=== PATIENT | male | born 1950 | race Caucasian/White ===

== ENCOUNTER → 2018-01-09 | Outpatient (CLI) | payer MEDICARE, OTHER | LOC: CARD 14:25 | PROVIDERS: ATTEND Internal Medicine Cardiovascular Disease | DX: I25.10 Atherosclerotic heart disease of native coronary artery without angina pectoris (principal) | CPT/HCPCS: 93017 ==

== ENCOUNTER 2018-05-29 05:38 | Outpatient (CLI) | payer MEDICARE, OTHER ==
[~2018-05-29] VITALS: Ht 172.7 cm; Wt 79.4 kg
[2018-05-29] MEDS ORDERED: DOXA4TAB PO (10:58)
[2018-05-29] MEDS ORDERED: ASPI-999 PO (10:58)
[2018-05-29] MEDS ORDERED: CLOP75TA69 PO (10:58)
[2018-05-29] MEDS ORDERED: NITR0.4T39 SL (10:58)
[2018-05-29] MEDS ORDERED: ATOR20TA66 PO (10:58)
[2018-05-29] MEDS ORDERED: DILT180C67 PO (10:58)
[2018-05-29] MEDS ORDERED: MULT1CAP27 PO (10:58)
== END 2018-05-29 11:06 | disposition home or self-care (01) ==
LOC: PREOP 05:38
PROVIDERS: ATTEND Surgery
DX: Z01.818 Encounter for other preprocedural examination (principal)

== ENCOUNTER 2018-06-05 06:55 | Day surgery (SDC) | payer MEDICARE, OTHER ==
[~2018-06-05] VITALS: Ht 172.7 cm; Wt 79.4 kg
[~2018-06-05 06:55] MED LIST: ASPI-999 PO; ATOR20TA66 PO; CLOP75TA69 PO; DILT180C67 PO; DOXA4TAB PO; MULT1CAP27 PO; NITR0.4T39 SL
[2018-06-05] MEDS ORDERED: LACTATED RINGERS 1,000 ML IV ONE (07:03)
[2018-06-05] MEDS ORDERED: MIDAZOLAM 2 MG/2 ML (VERSED) VIAL ONE (07:18)
[2018-06-05] MEDS ORDERED: PROPOFOL INJECTION 50 ML IV ONE (07:18)
[2018-06-05] MEDS ORDERED: LACTATED RINGERS 1,000 ML IV STA (07:29)
--- OUTSIDE RECORDS SUMMARY | 2018-06-05 07:29 | XMS REPORT | Continuity of Care Document ---
Author Author [facility] Organization [facility] Address Unknown Phone Unavailable Allergies Active Description Code Type Severity Reaction Onset Reported/Identified Relationship to Patient Clinical Status Yes No Known Allergies Drug Allergy N/A N/A 06/07/2013 Yes No Known Drug Allergies Drug Allergy N/A N/A 06/07/2013 Yes No Known Food Allergies Food Allergy N/A N/A 06/07/2013 Yes No Allergy Information Available [id number] Drug Allergy Unknown N/A 2015 Yes No Known Drug Allergies [id number] Drug Allergy Unknown N/A 05/29/2018 Medications There is no data. Problems Date Dx Coded Attending Type Code Diagnosis Diagnosed By 06/07/2013 Marvel OCAMPO, Neto Lawrence Admitting 794.30 ABN CV FUNCT STUDY NOS 06/07/2013 Marvel OCAMPO, Neto Lawrence Final V64.3 NO PX/REASONS NEC 11/11/2014 Ot 518.89 11/11/2014 Ot 786.07 11/11/2014 Ot 786.05 11/11/2014 Ot 719.41 11/11/2014 Ot 959.2 11/11/2014 Ot E000.8 11/11/2014 Ot E007.3 11/11/2014 Ot E849.4 11/11/2014 Ot E928.9 05/11/2015 Ot 518.89 05/11/2015 Ot 786.07 05/11/2015 Ot 786.05 05/11/2015 Ot 719.41 05/11/2015 Ot 959.2 05/11/2015 Ot E000.8 05/11/2015 Ot E007.3 05/11/2015 Ot E849.4 05/11/2015 Ot E928.9 05/14/2015 Ot 518.89 05/14/2015 Ot 786.07 05/14/2015 Ot 786.05 05/14/2015 Ot 719.41 05/14/2015 Ot 959.2 05/14/2015 Ot E000.8 05/14/2015 Ot E007.3 05/14/2015 Ot E849.4 05/14/2015 Ot E928.9 05/14/2015 Ot 518.89 05/14/2015 Ot 786.07 05/14/2015 Ot 786.05 05/14/2015 Ot 719.41 05/14/2015 Ot 959.2 05/14/2015 Ot E000.8 05/14/2015 Ot E007.3 05/14/2015 Ot E849.4 05/14/2015 Ot E928.9 05/18/2015 BRANDT OCAMPO FACC, ALI FACP CCDS Ot E78.4 05/18/2015 BRANDT OCAMPO FACC, ALI FACP CCDS Ot I12.9 05/18/2015 BRANDT OCAMPO FACC, ALI FACP CCDS Ot I25.110 05/18/2015 BRANDT OCAMPO FACC, ALI FACP CCDS Ot I34.1 05/18/2015 BRANDT BLANCAC, ALI FACP CCDS Ot N18.2 05/18/2015 BRANDT OCAMPO FACC, ALI FACP CCDS Ot E78.4 05/18/2015 BRANDT OCAMPO FACC, ALI FACP CCDS Ot I12.9 05/18/2015 BRANDT OCAMPO FACC, ALI FACP CCDS Ot I25.110 05/18/2015 BRANDT OCAMPO FACC, ALI FACP CCDS Ot I34.1 05/18/2015 BRANDT OCAMPO FACC, ALI FACP CCDS Ot N18.2 05/19/2015 BRANDT BLANCAC, ALI FACP CCDS Ot E78.4 05/19/2015 BRANDT BLANCAC, ALI FACP CCDS Ot I12.9 05/19/2015 BRANDT OCAMPO FACC, ALI FACP CCDS Ot I20.8 05/19/2015 BRANDT OCAMPO FACC, ALI FACP CCDS Ot I25.10 05/19/2015 BRANDT BLANCAC, ALI FACP CCDS Ot I34.1 05/19/2015 BRANDT OCAMPO FACC, ALI FACP CCDS Ot N18.2 05/19/2015 Ot 518.89 05/19/2015 Ot 786.07 05/19/2015 Ot 786.05 05/19/2015 Ot 719.41 05/19/2015 Ot 959.2 05/19/2015 Ot E000.8 05/19/2015 Ot E007.3 05/19/2015 Ot E849.4 05/19/2015 Ot E928.9 05/19/2015 BRANDT BLANCA, ALI FACP CCDS Ot E78.4 05/19/2015 BRANDT OCAMPO [facility], ALI FACP CCDS Ot I12.9 05/19/2015 BRANDT OCMAPO [facility], ALI FACP CCDS Ot I20.8 05/19/2015 BRANDT OCAMPO [facility], ALI FACP CCDS Ot I25.10 05/19/2015 BRANDT OCAMPO [facility], ALI FACP CCDS Ot I34.1 05/19/2015 BRANDT OCAMPO [facility], ALI FACP CCDS Ot N18.2 05/19/2015 BRANDT OCAMPO [facility], ALI FACP CCDS Ot E78.4 05/19/2015 BRANDT OCAMPO [facility], ALI FACP CCDS Ot I12.9 05/19/2015 BRANDT OCAMPO [facility], ALI FACP CCDS Ot I25.110 05/19/2015 BRANDT OCAMPO [facility], ALI FACP CCDS Ot I34.1 05/19/2015 BRANDT OCAMPO [facility], ALI FACP CCDS Ot N18.2 05/20/2015 BRANDT OCAMPO [facility], ALI FACP CCDS Ot E78.4 05/20/2015 BRANDT OCAMPO [facility], ALI FACP CCDS Ot I12.9 05/20/2015 BRANDT OCAMPO [facility], ALI FACP CCDS Ot I20.8 05/20/2015 BRANDT OCAMPO [facility], ALI FACP CCDS Ot I25.10 05/20/2015 BRANDT OCAMPO [facility], ALI FACP CCDS Ot I34.1 05/20/2015 BRANDT OCAMPO [facility], ALI FACP CCDS Ot N18.2 05/26/2015 BRANDT OCAMPO [facility], ALI FACP CCDS Ot E78.4 05/26/2015 BRANDT OCAMPO [facility], ALI FACP CCDS Ot I12.9 05/26/2015 BRANDT OCAMPO [facility], ALI FACP CCDS Ot I25.110 05/26/2015 BRANDT OCAMPO [facility], ALI FACP CCDS Ot I34.1 05/26/2015 BRANDT COAMPO [facility], ALI FACP CCDS Ot N18.2 05/26/2015 BRANDT OCAMPO [facility], ALI FACP CCDS Ot E78.4 05/26/2015 [facility], ALI FACP CCDS Ot I12.9 05/26/2015 [facility], ALI FACP CCDS Ot I25.110 05/26/2015 [facility], ALI FACP CCDS Ot I34.1 05/26/2015 [facility], ALI FACP CCDS Ot N18.2 05/26/2015 [facility], ALI FACP CCDS Ot E78.4 05/26/2015 [facility], ALI FACP CCDS Ot I12.9 05/26/2015 [facility], ALI FACP CCDS Ot I20.8 05/26/2015 [facility], ALI FACP CCDS Ot I25.10 05/26/2015 [facility], ALI FACP CCDS Ot I34.1 05/26/2015 [facility], ALI FACP CCDS Ot N18.2 05/26/2015 [facility], ALI FACP CCDS Ot E78.4 05/26/2015 [facility], ALI FACP CCDS Ot I12.9 05/26/2015 [facility], ALI FACP CCDS Ot I20.8 05/26/2015 [facility], ALI FACP CCDS Ot I25.10 05/26/2015 [facility], ALI FACP CCDS Ot I34.1 05/26/2015 [facility], ALI FACP CCDS Ot N18.2 05/26/2015 Ot 518.89 05/26/2015 Ot 786.07 05/26/2015 Ot 786.05 05/26/2015 Ot 719.41 05/26/2015 Ot 959.2 05/26/2015 Ot E000.8 05/26/2015 Ot E007.3 05/26/2015 Ot E849.4 05/26/2015 Ot E928.9 05/26/2015 [facility], ALI FACP CCDS Ot E78.4 05/26/2015 [facility], ALI FACP CCDS Ot I12.9 05/26/2015 [facility], ALI FACP CCDS Ot I20.8 05/26/2015 BRANDT BLANCAC, ALI FACP CCDS Ot I25.10 05/26/2015 BRANDT BLANCAC, ALI FACP CCDS Ot I34.1 05/26/2015 BRANDT OCAMPO FACC, ALI FACP CCDS Ot N18.2 05/26/2015 BRANDT OCAMPO FACC, ALI FACP CCDS Ot E78.4 05/26/2015 BRANDT OCAMPO FACC, ALI FACP CCDS Ot I12.9 05/26/2015 BRANDT OCAMPO FAC, ALI FACP CCDS Ot I25.110 05/26/2015 BRANDT OCAMPO FACC, ALI FACP CCDS Ot I34.1 05/26/2015 BRANDT BLANCAC, ALI FACP CCDS Ot N18.2 05/26/2015 BRANDT BLANCA, ALI FACP CCDS Ot E78.4 05/26/2015 BRANDT OCAMPO FACC, ALI FACP CCDS Ot I12.9 05/26/2015 BRANDT OCAMPO FAC, ALI FACP CCDS Ot I20.8 05/26/2015 BRANDT BLANCA, ALI FACP CCDS Ot I25.10 05/26/2015 BRANDT BLANCA, ALI FACP CCDS Ot I34.1 05/26/2015 BRANDT OCAMPO FACC, ALI FACP CCDS Ot N18.2 05/26/2015 BRANDT BLANCA, ALI FACP CCDS Ot E78.4 05/26/2015 BRANDT BLANCA, ALI FACP CCDS Ot I12.9 05/26/2015 BRANDT OCAMPO FACC, ALI FACP CCDS Ot I25.110 05/26/2015 BRANDT OCAMPO FACC, ALI FACP CCDS Ot I34.1 05/26/2015 BRANDT OCAMPO FACC, ALI FACP CCDS Ot N18.2 06/06/2016 BRANDT OCAMPO FACC, ALI FACP CCDS Ot E78.4 OTHER HYPERLIPIDEMIA 06/06/2016 BRANDT BLANCAC, ALI FACP CCDS Ot I12.9 HYPERTENSIVE CHRONIC KIDNEY DISEASE W ST 06/06/2016 BRANDT BLANCAC, ALI FACP CCDS Ot I25.110 ATHSCL HEART DISEASE OF [place] COR ART W 06/06/2016 BRANDT BLANCAC, ALI FACP CCDS Ot I34.1 NONRHEUMATIC MITRAL (VALVE) PROLAPSE 06/06/2016 BRANDT OCAMPO FACC, ALI FACP CCDS Ot N18.2 CHRONIC KIDNEY DISEASE, STAGE 2 (MILD) 10/17/2016 BRANDT OCAMPO FACC, ALI FACP CCDS Ot E78.4 OTHER HYPERLIPIDEMIA 10/17/2016 BRANDT OCAMPO FACC, ALI FACP CCDS Ot I12.9 HYPERTENSIVE CHRONIC KIDNEY DISEASE W ST 10/17/2016 BRANDT OCAMPO FACC, ALI FACP CCDS Ot I20.8 OTHER FORMS OF ANGINA PECTORIS 10/17/2016 BRANDT OCAMPO FACC, ALI FACP CCDS Ot I25.10 ATHSCL HEART DISEASE OF [place] CORONARY 10/17/2016 BRANDT OCAMPO FACC, ALI FACP CCDS Ot I34.1 NONRHEUMATIC MITRAL (VALVE) PROLAPSE 10/17/2016 BARNDT OCAMPO FACC, ALI FACP CCDS Ot N18.2 CHRONIC KIDNEY DISEASE, STAGE 2 (MILD) 01/09/2018 BRANDT OCAMPO FACC, ALI FACP CCDS Ot E78.4 OTHER HYPERLIPIDEMIA 01/09/2018 BRANDT OCAMPO FACC, ALI FACP CCDS Ot I12.9 HYPERTENSIVE CHRONIC KIDNEY DISEASE W ST 01/09/2018 BRANDT OCAMPO FACC, ALI FACP CCDS Ot I20.8 OTHER FORMS OF ANGINA PECTORIS 01/09/2018 BRANDT OCAMPO FACC, ALI FACP CCDS Ot I25.10 ATHSCL HEART DISEASE OF [place] CORONARY 01/09/2018 BRANDT OCAMPO FACC, ALI FACP CCDS Ot I34.1 NONRHEUMATIC MITRAL (VALVE) PROLAPSE 01/09/2018 BRANDT OCAMPO FACC, ALI FACP CCDS Ot N18.2 CHRONIC KIDNEY DISEASE, STAGE 2 (MILD) 01/09/2018 BRANDT OCAMPO FACC, ALI FACP CCDS Ot E78.4 OTHER HYPERLIPIDEMIA 01/09/2018 BRANDT OCAMPO FACC, ALI FACP CCDS Ot I12.9 HYPERTENSIVE CHRONIC KIDNEY DISEASE W ST 01/09/2018 BRANDT OCAMPO FACC, ALI FACP CCDS Ot I25.110 ATHSCL HEART DISEASE OF [place] COR ART W 01/09/2018 BRANDT OCAMPO FACC, ALI FACP CCDS Ot I34.1 NONRHEUMATIC MITRAL (VALVE) PROLAPSE 01/09/2018 BRANDT OCAMPO FACC, ALI FACP CCDS Ot N18.2 CHRONIC KIDNEY DISEASE, STAGE 2 (MILD) 01/12/2018 BRANDT OCAMPO FACC, ALI FACP CCDS Ot I25.10 ATHSCL HEART DISEASE OF [place] CORONARY 2018 BRANDT OCAMPO FACC, ALI FACP CCDS Ot I25.10 ATHSCL HEART DISEASE OF [place] CORONARY 05/29/2018 GATITO GLYNN DO Ot Z01.818 ENCOUNTER FOR OTHER PREPROCEDURAL EXAMIN 06/05/2018 BRANDT OCAMPO FACC, ALI FACP CCDS Ot E78.4 OTHER HYPERLIPIDEMIA 06/05/2018 BRANDT OCAMPO FACC, ALI FACP CCDS Ot I12.9 HYPERTENSIVE CHRONIC KIDNEY DISEASE W ST 06/05/2018 BRANDT OCAMPO FACC, ALI FACP CCDS Ot I20.8 OTHER FORMS OF ANGINA PECTORIS 06/05/2018 BRANTD OCAMPO FACC, ALI FACP CCDS Ot I25.10 ATHSCL HEART DISEASE OF [place] CORONARY 06/05/2018 BRANDT OCAMPO FACPari, ALI FACP CCDS Ot I34.1 NONRHEUMATIC MITRAL (VALVE) PROLAPSE 06/05/2018 BRANDT OCAMPO FACC, ALI FACP CCDS Ot N18.2 CHRONIC KIDNEY DISEASE, STAGE 2 (MILD) 06/05/2018 BRANDT OCAMPO FACC, ALI FACP CCDS Ot E78.4 OTHER HYPERLIPIDEMIA 06/05/2018 BRANDT OCAMPO FACC, ALI FACP CCDS Ot I12.9 HYPERTENSIVE CHRONIC KIDNEY DISEASE W ST 06/05/2018 BRANDT OCAMPO FACC, ALI FACP CCDS Ot I25.110 ATHSCL HEART DISEASE OF [place] COR ART W 06/05/2018 BRANDT OCAMPO FACC, ALI FACP CCDS Ot I34.1 NONRHEUMATIC MITRAL (VALVE) PROLAPSE 06/05/2018 BRANDT OCAMPO FACC, ALI FACP CCDS Ot N18.2 CHRONIC KIDNEY DISEASE, STAGE 2 (MILD) 06/05/2018 BRANDT OCAMPO FACC, ALI FACP CCDS Ot I25.10 ATHSCL HEART DISEASE OF [place] CORONARY Procedures There is no data. Results There is no data. Encounters ACCT No. Visit Date/Time Discharge Status Pt. Type Provider Facility Loc./Unit Complaint [id number] 06/07/2013 14:51:00 06/07/2013 23:59:59 CLS Outpatient Marvel OCAMPO, Neto Lawrence [facility] FOP [id number] 06/19/2013 11:35:00 Document Registration [id number] 05/29/2018 05:38:00 05/29/2018 11:06:00 DIS Outpatient GATITO GLYNN DO [facility] PREOP COLONOSCOPY [id number] 01/09/2018 14:25:00 01/09/2018 23:59:59 CLS Outpatient BRANDT OCAMPO FACC, ALI FACP CCDS [facility] CARD CAD IN [place] ARTERY [id number] 05/15/2015 07:37:00 05/15/2015 23:59:59 CLS Outpatient BRANDT OCAMPO FACC, ALI FACHoward CCDS [facility] CARD CAD, [id number] 05/14/2015 07:26:00 05/14/2015 23:59:59 CLS Outpatient BRANDT OCAMPO FACC, ALI FACP CCDS [facility] CARD CAD [id number] 06/05/2018 06:55:00 ACT Outpatient GATITO GLYNN DO [facility] ENDO SCREENING [id number] 04/23/2012 15:37:00 Document Registration [id number] 03/31/2012 14:33:00 Document Registration [id number] 08/24/2010 09:18:00 Document Registration
[2018-06-05 07:37] VITALS: BP 132/90
--- NOTE | 2018-06-05 08:46 | Discharge Inst-Simple/Standard ---
Discharge Inst-Standard Patient Instructions/Follow Up Plan of Care/Instructions/FU: Repeat colonoscopy in 5 years unless any issues before then, be seen at that time. Activity as Tolerated: Yes Discharge Diet: Regular Diet GATITO GLYNN DO Jun 05, 2018 08:46
--- NOTE | 2018-06-05 08:49 | Progress Note-Post Operative ---
Post-Operative Progess Note Surgeon (s)/Key Attendant (s) Surgeon GATITO GLYNN DO Key Attendant: na Pre-Operative Diagnosis screening colonoscopy, hx polyps Post-Operative Diagnosis diverticulosis Procedure & Operative Findings Date of Procedure 06/05/18 Procedure Performed/Findings colonoscopy Anesthesia Type per mobile architect Estimated Blood Loss Estimated blood loss (mL): none Specimens/Packing Specimens Removed na GATITO GLYNN DO Jun 05, 2018 08:49
[2018-06-05 08:50] VITALS: BP 110/68
[2018-06-05 09:10] VITALS: BP 139/89
[2018-06-05 10:50] VITALS: BP 139/89
--- NOTE | 2018-06-05 12:33 | Anesthesia-General Post-Op ---
MAC Patient Condition Mental Status/LOC: Same as Preop Cardiovascular: Satisfactory Nausea/Vomiting: Absent Respiratory: Satisfactory Pain: Controlled Complications: Absent Post Op Complications Complications None Follow Up Care/Instructions Patient Instructions None needed. Anesthesiology Discharge Order Discharge Order Patient was seen after the procedure and he was doing well, no complaints, stable vital signs, no apparent adverse anesthesia problems. HARI TORREZ DO Jun 05, 2018 12:33
--- NOTE | 2018-06-05 13:07 | OPERATIVE REPORT ---
DATE OF SERVICE: 06/05/2018 PREOPERATIVE DIAGNOSES: Screening colonoscopy, history of polyps. POSTOPERATIVE DIAGNOSIS: Diverticulosis. PROCEDURE: Colonoscopy. SURGEON: Gatito Coto DO ANESTHESIA: Per GROWTH MEDIA MIXER MUSHROOM. ESTIMATED BLOOD LOSS: None. COMPLICATIONS: None. INDICATIONS: The patient is a 68-year-old male due for screening colonoscopy. He understands risks and benefits of procedure and wished to proceed with procedure. Consent was signed on the chart. DESCRIPTION OF PROCEDURE: The patient was taken to the endoscopy suite, placed in left lower recumbent position. Timeout was performed. Digital rectal exam was performed. There were no palpable polyps, masses or ulcerations. Scope was inserted in the rectum, advanced all the way to the cecum with minimal difficulty. Prep was adequate. Scope was then slowly retracted back. There were no polyps, masses or ulcerations in the cecum, ascending, transverse, descending and sigmoid colon. Within the sigmoid colon, a small amount of diverticulosis present. Scope was continuously retracted back into the rectum, where it was also retroflexed noting no other pathology. Scope was returned to its normal position, slowly withdrawn until completely removed. The patient tolerated the procedure well without any complications. He was taken to recovery room in stable condition. RECOMMENDATIONS: The patient will need repeat colonoscopy in 5 years due to history of polyps. The patient is recommended high fiber diet due to diverticulosis. If he has any issues before this time frame, he should be seen at that time. Job ID: [id number] DocumentID: [id number] Dictated Date: 06/05/2018 08:52:08 Welder Fitter Helper Date: 06/05/2018 13:06:43 Dictated By: GATITO COTO DO
== END 2018-06-05 09:20 | disposition home or self-care (01) ==
LOC: ENDO 06:55
PROVIDERS: ATTEND Surgery
DX: Z12.11 Encounter for screening for malignant neoplasm of colon (principal); K57.30 Diverticulosis of large intestine without perforation or abscess without bleeding; I10 Essential (primary) hypertension; Z80.0 Family history of malignant neoplasm of digestive organs; Z87.19 Personal history of other diseases of the digestive system; Z79.82 Long term (current) use of aspirin; Z79.899 Other long term (current) drug therapy

== ENCOUNTER → 2018-12-12 | Outpatient (CLI) | payer MEDICARE, OTHER ==
--- NOTE | 2018-12-12 09:01 | Diagnostic Imaging Report ---
PROCEDURE: CT sinuses without contrast TECHNIQUE: Multiple contiguous axial images were obtained through the sinuses without the use of intravenous contrast. Coronal and sagittal reformations were then performed. Auto Exposure Controls were utilized during the CT exam to meet ALARA standards for radiation dose reduction. INDICATION: Unexplained Nosebleeds. FINDINGS: The frontal sinuses are clear. There is a small mucus retention cyst or polyp in the maxillary sinus bilaterally. The ostiomeatal complexes are widely patent. There are bilateral carlos manuel bullosa. There is opacification of a few ethmoid air cells. Sphenoid sinus is clear. Mastoid air cells are clear. The nasopharyngeal soft tissues are symmetric without mass effect. IMPRESSION: Small mucus retention cyst and/or polyps in maxillary sinuses bilaterally. There is also opacification of a few left ethmoid air cells. Bilateral carlos manuel bullosa and mild tortuosity of the nasal septum. Dictated by: Dictated on workstation # [id number]
== END ==
LOC: RAD 08:16
PROVIDERS: ATTEND Otolaryngology Otolaryngology/Facial Plastic Surgery
DX: J34.89 Other specified disorders of nose and nasal sinuses (principal); J32.9 Chronic sinusitis, unspecified
CPT/HCPCS: 70486

== ENCOUNTER 2018-12-18 12:44 | Outpatient (CLI) | payer MEDICARE, OTHER ==
[~2018-12-18] VITALS: Ht 172.7 cm; Wt 84.0 kg
[2018-12-18 13:17] VITALS: BP 148/78
[2018-12-18 13:20] LABS: BASOPHILS % (AUTO) 0 % (0-10); EOSINOPHILS # (AUTO) 0.3 10^3/uL (0.0-0.3); EOSINOPHILS % (AUTO) 4 % (0-10); HEMATOCRIT 42 % (40-54); LYMPHOCYTES # (AUTO) 1.8 X 10^3 (1.0-4.0); LYMPHOCYTES % (AUTO) 24 % (12-44); MEAN CORPUSCULAR HEMOGLOBIN 31 PG (25-34); MEAN CORPUSCULAR HGB CONC 36 G/DL (32-36); MEAN CORPUSCULAR VOLUME 86 FL (80-99); MEAN PLATELET VOLUME 9.7 FL (7.4-10.4); MONOCYTES # (AUTO) 0.9 X 10^3 (0.0-1.0); MONOCYTES % (AUTO) 12 % (0-12); NEUTROPHILS # (AUTO) 4.5 X 10^3 (1.8-7.8); NEUTROPHILS % (AUTO) 60 % (42-75); PLATELET COUNT 176 10^3/uL (130-400); RED CELL DISTRIBUTION WIDTH 12.6 % (10.0-14.5); WHITE BLOOD COUNT 7.4 10^3/uL (4.3-11.0)
[2018-12-18 13:43] LABS: CALCIUM 8.9 MG/DL (8.5-10.1); CREATININE SERUM 1.48 MG/DL (0.60-1.30); POTASSIUM 4.3 MMOL/L (3.6-5.0)
== END 2018-12-18 13:15 | disposition home or self-care (01) ==
LOC: PREOP 12:44
PROVIDERS: ATTEND Otolaryngology Otolaryngology/Facial Plastic Surgery
DX: Z01.818 Encounter for other preprocedural examination (principal)
CPT/HCPCS: 36415; 80048; 85025; 87081; 93005

== ENCOUNTER 2018-12-21 06:04 | Day surgery (SDC) | payer MEDICARE, OTHER ==
[2018-12-21] VITALS (10 sets, daily range): BP systolic 106–143; BP diastolic 61–87
[~2018-12-21] VITALS: Ht 172.7 cm; Wt 81.0 kg
[2018-12-21] MEDS ORDERED: LACTATED RINGERS 1,000 ML IV PRN (06:25)
[2018-12-21] MEDS ORDERED: fentaNYL INJECTION 100 MCG/2 ML AMP ONE (06:52)
[2018-12-21] MEDS ORDERED: MIDAZOLAM 2 MG/2 ML (VERSED) VIAL ONE (06:52)
[2018-12-21] MEDS ORDERED: LIDOCAINE PF 2% 5 ML (XYLOCAINE) VIAL ONE (06:52)
[2018-12-21] MEDS ORDERED: ONDANSETRON 4 MG/2 ML (SDV) Z0FRAN ONE (06:52)
[2018-12-21] MEDS ORDERED: proPOfol 200 MG/20 ML (DIPRIVAN) VIAL IV ONE (06:52)
[2018-12-21] MEDS ORDERED: DEXAMETHASONE 10 MG/ML (DECADRON) 1 ML VIAL ONE (06:52)
[2018-12-21] MEDS ORDERED: COCAINE HCL 4% 2 ML SYR ONE (06:53)
[2018-12-21] MEDS ORDERED: PHENYLEPHRINE 0.5% NASAL SPR (NEO-SYNEPHRINE) REG ONE (06:53)
[2018-12-21] MEDS ORDERED: LIDOCAINE/EPI 1%-1:100,000 (XYLOCAINE) 20ML ONE (06:53)
[2018-12-21] MEDS ORDERED: MUPIROCIN 2% OINT 22 GM (BACTROBAN) TUBE ONE (06:53)
[2018-12-21] MEDS ORDERED: SEVOFLURANE (ULTANE) 15 ML INHAL SOLN ONE ×3 (06:58→07:38)
[2018-12-21] MEDS ORDERED: ROCURONIUM 10 MG/ML 5 ML SYRINGE IV ONE (06:58)
[2018-12-21] MEDS ORDERED: NEOSTIGMINE 3 MG/3 ML VIAL ONE (07:38)
[2018-12-21] MEDS ORDERED: GLYCOPYRROLATE 0.2 MG/ML (ROBINUL) 2 ML VIAL ONE (07:38)
--- NOTE | 2018-12-21 07:40 | Progress Note-Pre Operative ---
Pre-Operative Progress Note H&P Reviewed The H&P was reviewed, patient examined and no changes noted. Date Seen by Provider: Dec 21, 2018 Time Seen by Provider: 07:00 Date H&P Reviewed: Dec 21, 2018 Time H&P Reviewed: 07:00 Pre-Operative Diagnosis: Left Epistaxis MICHELLE HONEYCUTT MD Dec 21, 2018 07:40
[2018-12-21] MEDS ORDERED: D5 1/2 NS W/KCL 20 MEQ/L 1,000 ML IV SCH (07:42)
--- NOTE | 2018-12-21 07:42 | Progress Note-Post Operative ---
Post-Operative Progess Note Surgeon (s)/Logging Crew Foreman (s) Surgeon MICHELLE HONEYCUTT MD Logging Crew Foreman n/a Pre-Operative Diagnosis Left Epistaxis Post-Operative Diagnosis same Post-Op Procedure Note Date of Procedure: Dec 21, 2018 Name of Procedure Performed: Endoscopic Repair of Left Posterior Epistaxis Description & Findings Description and Findings: n/a Anesthesia Type get Estimated Blood Loss minimal Packing surgicel left side of nose. Specimen(s) collected/removed none MICHELLE HONEYCUTT MD Dec 21, 2018 07:42
[2018-12-21] MEDS ORDERED: ACETAMINOPHEN 500 MG TAB (TYLENOL) PO PRN (07:45)
[2018-12-21] MEDS ORDERED: HYDROcodone/APAP 5 MG/325 MG (LORTAB) TAB PO PRN (07:45)
[2018-12-21] MEDS ORDERED: PHENYLEPHRINE 0.5% NASAL SPR (NEO-SYNEPHRINE) REG PRN (07:45)
[2018-12-21] MEDS ORDERED: ONDANSETRON 4 MG/2 ML (SDV) Z0FRAN IVP PRN (08:00)
[2018-12-21] MEDS ORDERED: morphine INJ 10 MG/ML 1ML (SYR OR VIAL) IVP ONE (08:00)
[2018-12-21] MEDS ORDERED: PROMETHAZINE INJ 25 MG/ML (PHENERGAN) AMP IVP ONE (08:00)
[2018-12-21] MEDS ORDERED: MEPERIDINE (DEMEROL) INJ 50 MG/ML IVP ONE (08:00)
--- NOTE | 2018-12-21 08:19 | Anesthesia-General Post-Op ---
General Patient Condition Mental Status/LOC: Same as Preop Cardiovascular: Satisfactory Nausea/Vomiting: Absent Respiratory: Satisfactory Pain: Controlled Complications: Absent Post Op Complications Complications None Follow Up Care/Instructions Patient Instructions None needed. Anesthesia/Patient Condition Patient Condition Patient is doing well, no complaints, stable vital signs, no apparent adverse anesthesia problems. No complications reported per nursing. ZEB GIMENEZ CRNA Dec 21, 2018 08:19
[2018-12-21] MEDS ORDERED: HYDR-3062 PO (09:38)
== END 2018-12-21 09:58 | disposition home or self-care (01) ==
LOC: SDC 06:04
PROVIDERS: ATTEND Otolaryngology Otolaryngology/Facial Plastic Surgery
DX: R04.0 Epistaxis (principal); J34.2 Deviated nasal septum; I10 Essential (primary) hypertension; E78.5 Hyperlipidemia, unspecified; Z79.02 Long term (current) use of antithrombotics/antiplatelets; Z79.899 Other long term (current) drug therapy; Z79.82 Long term (current) use of aspirin

== ENCOUNTER → 2019-09-23 | Outpatient (CLI) | payer MEDICARE, OTHER ==
[~2019-09-23] MED LIST changes: +ACHD5005 PO
== END ==
LOC: CARD 11:28
PROVIDERS: ATTEND Internal Medicine Cardiovascular Disease
DX: I25.10 Atherosclerotic heart disease of native coronary artery without angina pectoris (principal); I12.9 Hypertensive chronic kidney disease with stage 1 through stage 4 chronic kidney disease, or unspecified chronic kidney disease; N18.2 Chronic kidney disease, stage 2 (mild)
CPT/HCPCS: 93306

== ENCOUNTER → 2019-09-24 | Outpatient (CLI) | payer MEDICARE, OTHER ==
[~2019-09-24] VITALS: Ht 172 cm; Wt 85.0 kg
[~2019-09-24] MED LIST changes: +CATHETER FLUSH 10 ML SYR IV PRN
[2019-09-24 09:00] VITALS: BP 161/84
[2019-09-24 09:12] VITALS: BP 200/56
[2019-09-24 09:13] VITALS: BP 178/89
[2019-09-24 09:15] VITALS: BP 144/61
[2019-09-24 09:18] VITALS: BP 141/63
--- NOTE | 2019-09-24 16:02 | STRESS TEST ---
DATE OF SERVICE: 09/24/2019 REST AND POST EXERCISE TECHNETIUM-99M TETROFOSMIN SPECT CT IMAGING ORDERING PHYSICIAN: Nieves Fox APRN PRIMARY PHYSICIAN: Dr. Muhammad. CLINICAL DIAGNOSES: Coronary artery disease, chest discomfort. Baseline images were carried out after injection of 10.02 mCi of technetium-99m Tetrofosmin. This was followed by exercise on a treadmill. Cullen protocol was employed. Heart rate response to exercise was normal. Blood pressure response to exercise was hypertensive. There does not appear to be significant ST segment deviation. There appeared to be nonspecific T-wave inversion in the lateral leads. No significant arrhythmia was seen. He exercised for a total of 10 minutes and 3 seconds. The test was stopped on account of leg fatigue. After he had attained more than 85% of maximum predicted heart rate, 30.8 mCi of technetium-99m Tetrofosmin were injected and the exercise was continued for more than another minute. Review of images at rest and following stress indicates diminished count uptake in the diaphragmatic wall of the left ventricle, which is present both at rest and following exercise. Gated images show normal global left ventricular systolic function with normal regional wall motion, including the diaphragmatic wall of the left ventricle. There is considerable patient motion during image acquisition, especially during acquisition of stress images. This impairs the quality of the study. Gated images show left ventricular ejection fraction 55%. Left ventricular end diastolic volume is 67 mL. TID is absent (0.85). CONCLUSIONS: 1. This study does not show distinct evidence of exercise-induced myocardial ischemia or infarction. 2. Normal regional wall motion. 3. Normal global left ventricular systolic function with a calculated ejection fraction of 55%. Job ID: [id number] DocumentID: [id number] Dictated Date: 09/24/2019 13:36:01 Director Of Premium Seat Sales Date: 09/24/2019 16:02:00 Dictated By: JESSICA CARLTON MD, MA, FACP, FACC,
== END ==
LOC: CARD 07:32
PROVIDERS: ATTEND Nurse Practitioner Family
DX: I25.10 Atherosclerotic heart disease of native coronary artery without angina pectoris (principal); I12.9 Hypertensive chronic kidney disease with stage 1 through stage 4 chronic kidney disease, or unspecified chronic kidney disease; N18.2 Chronic kidney disease, stage 2 (mild)
CPT/HCPCS: 78452; 93017; A9502

== ENCOUNTER → 2019-10-18 | Outpatient (CLI) | payer MEDICARE, OTHER ==
[~2019-10-18] MED LIST changes: -CATHETER FLUSH 10 ML SYR IV PRN
== END ==
LOC: LAB 19:16
PROVIDERS: ATTEND Nurse Practitioner Family
DX: R50.9 Fever, unspecified (principal); Z20.828 Contact with and (suspected) exposure to other viral communicable diseases
CPT/HCPCS: 87635

== ENCOUNTER 2020-02-22 15:03 | Emergency (ER) | payer MEDICARE, OTHER ==
[~2020-02-22] VITALS: Ht 177 cm; Wt 77.0 kg
[2020-02-22 15:33] LABS: BILIRUBIN,URINE NEGATIVE (NEGATIVE); CLARITY,URINE CLEAR; COLOR,URINE YELLOW; GLUCOSE, URINE (UA) NEGATIVE (NEGATIVE); KETONES,URINE NEGATIVE (NEGATIVE); LEUKOCYTE ESTERASE ,URINE NEGATIVE (NEGATIVE); NITRITE,URINE NEGATIVE (NEGATIVE); PH,URINE 5.5 (5-9); PROTEIN,URINE NEGATIVE (NEGATIVE)
--- NOTE | 2020-02-22 15:38 | ED General ---
General Chief Complaint: Back Problems Stated Complaint: BACK PAIN Nursing Triage Note: THE PT IS AMBULATORY TO THE ROOM WITHOUT DIFFICULTY. NO DISTRESS IS SEEN ON ARRIVAL. LOC IS NORMAL FOR THE PT. THE PT C/O LEFT LOWER BACK PAIN X48 HRS. NO RECENT INJURY IS REPORTED. Nursing Sepsis Screen: No Definite Risk Source of Information: Patient Exam Limitations: No Limitations History of Present Illness Date Seen by Provider: Feb 22, 2020 Time Seen by Provider: 15:20 Initial Comments Here with report of left low back pain that has been going on for 2 days. He states he woke up with the pain after a nap on . Denies injury. Does have history of kidney stones and states it sort of feels like that but also has some degenerative back pain that can feel like this as well. He has been taking ibuprofen and Robaxin and that has not helped. Denies fevers or chills. Denies nausea, vomiting, diarrhea, numbness between his legs, weakness or difficulty walking. Timing/Duration: 1-2 Days Severity: Moderate Modifying Factors: worse with Movement; improves with Rest Associated Systoms: No Fever/Chills, No Nausea/Vomiting, No Weakness Allergies and Home Medications Allergies Coded Allergies: No Known Drug Allergies (Unverified , 12/21/18) Home Medications Atorvastatin Calcium 20 Mg Tablet, 20 MG PO DAILY, (Reported) Diltiazem HCl 180 Mg Cap.er.24h, 180 MG PO DAILY, (Reported) Doxazosin Mesylate 4 Mg Tablet, 4 MG PO DAILY, (Reported) Hydrocodone Bit/Acetaminophen 1 Each Tablet, 1 EACH PO Q4-6HR PRN for PAIN- MODERATE Prescribed by: ELDA NELSON on 12/21/18 0938 Multivitamin 1 Each Capsule, 1 EACH PO DAILY, (Reported) Nitroglycerin 0.4 Mg Tab.subl, 0.4 MG SL UD PRN for CHEST PAIN, (Reported) Patient Home Medication List Home Medication List Reviewed: Yes Review of Systems Review of Systems Constitutional: no symptoms reported Respiratory: no symptoms reported Cardiovascular: no symptoms reported Gastrointestinal: No nausea, No vomiting Genitourinary: dysuria; No hematuria Musculoskeletal: back pain, muscle pain Skin: no symptoms reported Psychiatric/Neurological: No Symptoms Reported Past Moxpvdu-Tuvgrp-Swnnsy Hx Past Med/Social Hx: Reviewed Nursing Past Med/Soc Hx Patient Social History Alcohol Use: Occasionally Uses Recreational Drug Use: No Smoking Status: Never a Smoker 2nd Hand Smoke Exposure: No Recent Foreign Travel: No Contact w/Someone Who Travel: No Recent Infectious Disease Expo: No Recent Hopitalizations: No Immunizations Up To Date Date of Pneumonia Vaccine: Jan 01, 2018 Date of Influenza Vaccine: Jan 01, 2018 Seasonal Allergies Seasonal Allergies: No Past Medical History Surgeries: Yes (NECK FUSION C3-4, polyp removed from larynx) Tonsillectomy Respiratory: No Currently Using CPAP: No Currently Using BIPAP: No Cardiac: Yes High Cholesterol, Hypertension Neurological: No Sexually Transmitted Disease: No HIV/AIDS: No Genitourinary: Yes (MILD KIDNEY FAILURE) Renal Failure Gastrointestinal: No Polyps Musculoskeletal: No Endocrine: No HEENT: Yes (READING GLASSES, nose bleed) Loss of Vision: Bilateral Hearing Impairment: Denies Cancer: No Psychosocial: No Integumentary: Yes (MILD) Psoriasis Blood Disorders: No Adverse Reaction/Blood Tranf: No (N/A) Family Medical History Reviewed Nursing Family Hx Physical Exam Vital Signs Vital Signs - First Documented 02/22/20 15:19 Temp 35.4 Pulse 80 Resp 16 B/P (MAP) 189/90 (123) Capillary Refill : Less Than 3 Seconds Height, Weight, BMI Height: 5'8.00" Weight: 175lbs. 0.0oz. [id number]; 24.00 BMI Method: General Appearance: No Apparent Distress, WD/WN Respiratory: Lungs Clear, Normal Breath Sounds Cardiovascular: Regular Rate, Rhythm, No Murmur Gastrointestinal: Non Tender, Soft Back: No CVA Tenderness (L), No CVA Tenderness (R); Muscle Spasm, Other (Tender to the left low back just above iliac crest) Extremity: Normal Range of Motion, Non Tender Neurologic/Psychiatric: Alert, Oriented x3 Progress/Results/Core Measures Suspected Sepsis Recent Fever Within 48 Hours: No Infection Criteria Present: None New/Unexplained Altered Menta: No Sepsis Screen: No Definite Risk SIRS Temperature: Pulse: 80 Respiratory Rate: 16 Blood Pressure 189 /90 Mean: 123 Results/Orders Lab Results Laboratory Tests Test 02/22/20 15:15 Range/Units Urine Color YELLOW Urine Clarity CLEAR Urine pH 5.5 5-9 Urine Specific [place] 1.020 1.016-1.022 Urine Protein NEGATIVE NEGATIVE Urine Glucose (UA) NEGATIVE NEGATIVE Urine Ketones NEGATIVE NEGATIVE Urine Nitrite NEGATIVE NEGATIVE Urine Bilirubin NEGATIVE NEGATIVE Urine Urobilinogen 0.2 < = 1.0 MG/DL Urine Leukocyte Esterase NEGATIVE NEGATIVE Urine RBC (Auto) NEGATIVE NEGATIVE Urine RBC RARE /HPF Urine WBC RARE /HPF Urine Crystals NONE /LPF Urine Bacteria NEGATIVE /HPF Urine Casts NONE /LPF Urine Mucus NEGATIVE /LPF Urine Culture Indicated NO My Orders Orders - ZAIN KATE MD Ct Abd/Pelvis Wo(Kidney Stone) (02/22/20 15:26) Ua Culture If Indicated (02/22/20 15:26) Vital Signs/I&O 02/22/20 15:19 Temp 35.4 Pulse 80 Resp 16 B/P (MAP) 189/90 (123) Capillary Refill : Less Than 3 Seconds Blood Pressure Mean: 123 Progress Note : Progress Note Seen and evaluated. CT abdomen pelvis kidney stone protocol ordered and UA ordered. Patient declined pain medicine at this time. Monitor patient. 1612: CT results noted. UA negative. Discharged home with return precautions. Patient verbalized understanding of instructions and agreement with plan. Diagnostic Imaging Diagonstic Imaging: CT Plain Films/CT/US/NM/MRI: abdomen, pelvis Comments [facility], [place] NAME: ANHOMY BARTON [facility] REC#: [id number] PT STATUS: REG ER : 1950 PHYSICIAN: ZAIN KATE MD ADMIT DATE: 02/22/20/ER Signed Date of Exam:02/22/20 CT ABD/PELVIS WO(KIDNEY STONE) EXAMINATION: CT abdomen and pelvis without contrast. TECHNIQUE: Multiple contiguous axial images were obtained through the abdomen and pelvis without the use of intravenous contrast. All CT scans use one or more of the following dose optimizing techniques: automated exposure control, MA and/or KvP adjustment based on patient size and exam type or iterative reconstruction. HISTORY: Flank pain. COMPARISON: None available. FINDINGS: Limited views of the lower thorax are unremarkable. The liver is normal without focal lesion. There is no biliary ductal dilation. Gallbladder is normal. Pancreas is normal. Spleen is normal. Adrenal glands are normal. The kidneys are normal. There is no hydronephrosis. Urinary bladder is normal. Prostate is enlarged. There is no renal or ureteral stone. There is mild sigmoid diverticulitis. No abscess or perforation. The appendix is normal. No free fluid or air. No abdominal or pelvic lymphadenopathy. Aorta is normal in caliber without aneurysm. There are no suspicious osseus lesions. IMPRESSION: Mild sigmoid diverticulitis. Dictated by: Dictated on workstation # [id number] Dict: 02/22/20 1551 Trans: 02/22/20 1602 [facility] [id number] Interpreted by: KHALIDA BROWNING MD Electronically signed by: KHALIDA BROWNING MD 02/22/20 1602 Departure Impression Primary Impression: Sigmoid diverticulitis Disposition: 01 HOME, SELF-CARE Condition: Stable Departure-Patient Inst. Decision time for Depature: 16:13 Referrals: KHALIDA OLIVAREZ MD (PCP/Family) Primary Care Physician Patient Instructions: Diverticulitis (DC) Scripts Metronidazole (Metronidazole) 500 Mg Tablet 500 MG PO BID, #14 TAB 0 Refills Prov: ZAIN KATE MD 02/22/20 Hydrocodone/Acetaminophen (Hydrocodone/Acetaminophen 5 MG/325 MG TAB) 1 Each Tablet 1 TAB PO Q4-6HR PRN for PAIN-MODERATE (5-7) MDD 10 TABS for 3 Days, #4 TAB 0 Refills Prov: ZAIN KATE MD 02/22/20 Ciprofloxacin HCl (Ciprofloxacin HCl) 500 Mg Tablet 500 MG PO BID, #14 TAB Prov: ZAIN KATE MD 02/22/20 Copy Copies To 1: SIDDHARTH NICHOLS MD Copies To 2: KHALIDA OLIVAREZ MD, TIMOTHY D MD Feb 22, 2020 15:38
--- NOTE | 2020-02-22 15:58 | Diagnostic Imaging Report ---
EXAMINATION: CT abdomen and pelvis without contrast. TECHNIQUE: Multiple contiguous axial images were obtained through the abdomen and pelvis without the use of intravenous contrast. All CT scans use one or more of the following dose optimizing techniques: automated exposure control, MA and/or KvP adjustment based on patient size and exam type or iterative reconstruction. HISTORY: Flank pain. COMPARISON: None available. FINDINGS: Limited views of the lower thorax are unremarkable. The liver is normal without focal lesion. There is no biliary ductal dilation. Gallbladder is normal. Pancreas is normal. Spleen is normal. Adrenal glands are normal. The kidneys are normal. There is no hydronephrosis. Urinary bladder is normal. Prostate is enlarged. There is no renal or ureteral stone. There is mild sigmoid diverticulitis. No abscess or perforation. The appendix is normal. No free fluid or air. No abdominal or pelvic lymphadenopathy. Aorta is normal in caliber without aneurysm. There are no suspicious osseus lesions. IMPRESSION: Mild sigmoid diverticulitis. Dictated by: Dictated on workstation # [id number]
[2020-02-22 16:07] LABS: BACTERIA,URINE NEGATIVE /HPF; RBC,URINE RARE /HPF; WBC,URINE RARE /HPF
[2020-02-22] MEDS ORDERED: CIPR500T4 PO (16:15)
[2020-02-22] MEDS ORDERED: METR-145 PO (16:15)
[2020-02-22] MEDS ORDERED: HYDR-4226 PO (16:15)
[2020-02-22 16:20] VITALS: BP 180/90
== END 2020-02-22 16:22 | disposition home or self-care (01) ==
LOC: EDUNIT# 15:03 → ER 15:04
DX: K57.32 Diverticulitis of large intestine without perforation or abscess without bleeding (principal); E78.00 Pure hypercholesterolemia, unspecified; I10 Essential (primary) hypertension
CPT/HCPCS: 74176; 81000

== ENCOUNTER 2020-03-18 09:16 | Outpatient (RCR) | payer MEDICARE, OTHER ==
[~2020-03-18 09:16] MED LIST changes: +CIPR500T5 PO; +HYDR-4226 PO; +METR-145 PO
== END 2020-05-24 | disposition home or self-care (01) ==
PROVIDERS: ATTEND Obstetrics & Gynecology Obstetrics
DX: M54.5 Low back pain (principal)

== ENCOUNTER 2021-03-10 16:42 | Emergency (ER) | payer MEDICARE, OTHER ==
[~2021-03-10] VITALS: Ht 172 cm; Wt 83.0 kg
--- NOTE | 2021-03-10 17:15 | ED Cardiac General ---
History of Present Illness General Chief Complaint: Cardiac/General Problems Stated Complaint: FATIGUE, CONSTIPATION Nursing Triage Note: SENT OVER FROM DR ARREDONDO OFFICE WITH FATIGUE AND TACHYCARDIA. Source: patient Exam Limitations: no limitations (SHARATH SHAVER MD) History of Present Illness Date Seen by Provider: Mar 10, 2021 Time Seen by Provider: 17:00 Initial Comments Patient is a 71-year-old male brought to the emergency department today with a chief complaint of feeling some generalized fatigue and malaise this morning as well as tachycardia. He states he woke up with symptoms at about 5 AM this morning. He waited a little bit at home and then finally went in to see Dr. Lee where he had an EKG performed that Dr. Lee was unsure if he had atrial flutter or sinus tachycardia. Reportedly he was at about a rate of 125. He does take Cardizem on a regular basis Dr. Lee instructed him to take an extra Cardizem this afternoon. He did and then decided to come to the emergency room at Dr. Lee's direction for further evaluation and "work-up". He denies any chest pain or shortness of breath. No abdominal pain nausea or vomiting. Dr. Lee did start him on Eliquis today. He has had 1 dose. He is also on Plavix. No recent illnesses. He is Covid vaccinated with the booster. No other complaints of recent illness. He did state that he forgot his daily medications yesterday as he got his second varicella/shingles vaccine. He is wondering if his symptoms are related to being vaccinated yesterday. All other review of systems reviewed and negative except as stated Timing/Duration: 12 hours Severity: mild NTG SL TRACK PRODUCTION ENGINEER: No ASA po TRACK PRODUCTION ENGINEER: No Associated Systoms: Other (malaise) (SHARATH SHAVER MD) Allergies and Home Medications Allergies Coded Allergies: No Known Drug Allergies (Unverified , 12/21/18) Patient Home Medication List Home Medication List Reviewed: Yes (SHARATH SHAVER MD) Home Medication List Reviewed: Yes (VINCENZO GODOY DO) Atorvastatin Calcium (Atorvastatin Calcium) 20 Mg Tablet, 20 MG PO DAILY, (Reported) Entered as Reported by: ENMA VELARDE on 05/29/18 1058 Ciprofloxacin HCl (Ciprofloxacin HCl) 500 Mg Tablet, 500 MG PO BID Prescribed by: ZAIN KATE on 02/22/20 1615 Diltiazem HCl (Cardizem Cd) 180 Mg Cap.er.24h, 180 MG PO DAILY, (Reported) Entered as Reported by: ENMA VELARDE on 05/29/18 1058 Doxazosin Mesylate (Cardura) 4 Mg Tablet, 4 MG PO DAILY, (Reported) Entered as Reported by: ENMA VELARDE on 05/29/18 1058 Hydrocodone Bit/Acetaminophen (HYDROcodone/APAP 5 MG/325 MG TAB) 1 Each Tablet, 1 EACH PO Q4-6HR PRN for PAIN-MODERATE Prescribed by: ELDA NELSON on 12/21/18 0938 Hydrocodone/Acetaminophen (Hydrocodone/Acetaminophen 5 MG/325 MG TAB) 1 Each Tablet, 1 TAB PO Q4-6HR PRN for PAIN-MODERATE (5-7) Prescribed by: ZAIN KATE on 02/22/20 1615 Metronidazole (Metronidazole) 500 Mg Tablet, 500 MG PO BID Prescribed by: ZAIN KATE on 02/22/20 1615 Multivitamin (Multivitamins) 1 Each Capsule, 1 EACH PO DAILY, (Reported) Entered as Reported by: ENMA VELARDE on 05/29/18 1058 Nitroglycerin (Nitroglycerin) 0.4 Mg Tab.subl, 0.4 MG SL UD PRN for CHEST PAIN, (Reported) Entered as Reported by: ENMA VELARDE on 05/29/18 1058 Review of Systems Review of Systems Constitutional: see HPI EENTM: No Symptoms Reported Respiratory: No Symptoms Reported Cardiovascular: Palpitations Gastrointestinal: No Symptoms Reported Genitourinary: No Symptoms Reported Musculoskeletal: no symptoms reported Skin: no symptoms reported Psychiatric/Neurological: No Symptoms Reported (SHARATH SHAVER MD) All Other Systems Reviewed Negative Unless Noted: Yes (SHARATH SHAVER MD) Past Ihhzofa-Bijaqk-Gudpin Hx Patient Social History Tobacco Use?: No Substance use?: No Alcohol Use?: No (SHARATH SHAVER MD) Immunizations Up To Date COVID19 Vaccine Supervisor Hand Silvering: MODERNJohanne (SHARATH SHAVER MD) Seasonal Allergies Seasonal Allergies: No (SHARATH SHAVER MD) Past Medical History Surgeries: Yes (NECK FUSION C3-4, polyp removed from larynx) Tonsillectomy Respiratory: No Currently Using CPAP: No Currently Using BIPAP: No Cardiac: Yes High Cholesterol, Hypertension Neurological: No Sexually Transmitted Disease: No HIV/AIDS: No Genitourinary: Yes (MILD KIDNEY FAILURE) Renal Failure Gastrointestinal: No Polyps Musculoskeletal: No Endocrine: No HEENT: Yes (READING GLASSES, nose bleed) Loss of Vision: Bilateral Hearing Impairment: Denies Cancer: No Psychosocial: No Integumentary: Yes (MILD) Psoriasis Blood Disorders: No Adverse Reaction/Blood Tranf: No (N/A) (SHARATH SHAVER MD) Physical Exam Vital Signs Vital Signs - First Documented 03/10/21 16:55 Temp 37.1 Pulse 101 Resp 16 B/P (MAP) 146/77 (100) Pulse Ox 96 O2 Delivery Room Air (WALT,VINCENZO K DO) Vital Signs Capillary Refill : Less Than 3 Seconds (SHARATH SHAVER MD) Height, Weight, BMI Height: 5'8.00" Weight: 175lbs. 0.0oz. 79.246871my; 28.00 BMI Method: General Appearance: No Apparent Distress, WD/WN HEENT: PERRL/EOMI Neck: Normal Inspection Respiratory: Lungs Clear, Normal Breath Sounds, No Accessory Muscle Use, No Respiratory Distress Cardiovascular: No Murmur, Normal Peripheral Pulses, Tachycardia Gastrointestinal: Normal Bowel Sounds, Non Tender, Soft Extremity: Normal Inspection, No Pedal Edema Neurologic/Psychiatric: Alert, Oriented x3, No Motor/Sensory Deficits, Normal Mood/Affect Skin: Normal Color, Warm/Dry (SHARATH SHAVER MD) Progress/Results/Core Measures Results/Orders Lab Results Laboratory Tests Test 03/10/21 17:13 Range/Units White Blood Count 7.7 4.3-11.0 10^3/uL Red Blood Count 4.24 L 4.30-5.52 10^6/uL Hemoglobin 13.6 13.3-17.7 g/dL Hematocrit 37 L 40-54 % Mean Corpuscular Volume 88 80-99 fL Mean Corpuscular Hemoglobin 32 25-34 pg Mean Corpuscular Hemoglobin Concent 37 H 32-36 g/dL Red Cell Distribution Width 11.7 10.0-14.5 % Platelet Count 149 130-400 10^3/uL Mean Platelet Volume 9.7 9.0-12.2 fL Immature Granulocyte % (Auto) 0 % Neutrophils (%) (Auto) 64 42-75 % Lymphocytes (%) (Auto) 17 12-44 % Monocytes (%) (Auto) 16 H 0-12 % Eosinophils (%) (Auto) 3 0-10 % Basophils (%) (Auto) 0 0-10 % Neutrophils # (Auto) 4.9 1.8-7.8 10^3/uL Lymphocytes # (Auto) 1.3 1.0-4.0 10^3/uL Monocytes # (Auto) 1.2 H 0.0-1.0 10^3/uL Eosinophils # (Auto) 0.2 0.0-0.3 10^3/uL Basophils # (Auto) 0.0 0.0-0.1 10^3/uL Immature Granulocyte # (Auto) 0.0 0.0-0.1 10^3/uL Sodium Level 136 135-145 MMOL/L Potassium Level 3.5 L 3.6-5.0 MMOL/L Chloride Level 104 98-107 MMOL/L Carbon Dioxide Level 21 21-32 MMOL/L Anion Gap 11 5-14 MMOL/L Blood Urea Nitrogen 19 H 7-18 MG/DL Creatinine 1.35 H 0.60-1.30 MG/DL Estimat Glomerular Filtration Rate 52 BUN/Creatinine Ratio 14 Glucose Level 96 70-105 MG/DL Calcium Level 8.7 8.5-10.1 MG/DL Corrected Calcium 8.7 8.5-10.1 MG/DL Magnesium Level 1.7 1.6-2.4 MG/DL Total Bilirubin 1.2 H 0.1-1.0 MG/DL Aspartate Amino Transf (AST/SGOT) 21 5-34 U/L Alanine Aminotransferase (ALT/SGPT) 27 0-55 U/L Alkaline Phosphatase 77 40-136 U/L Troponin I < 0.028 <0.028 NG/ML B-Type Natriuretic Peptide 64.0 <100.0 PG/ML Total Protein 6.3 L 6.4-8.2 GM/DL Albumin 4.0 3.2-4.5 GM/DL TSH [facility] Testing 1.05 0.35-4.94 UIU/ML (VINCENZO GODOY DO) My Orders Orders - WALTVINCENZO Mcguire DO Bnp Andres (03/10/21 17:41) Magnesium (03/10/21 17:41) Thyroid Analyzer (03/10/21 17:41) Troponin I [place] (03/10/21 17:41) (WALTVINCENZO Maynor JENKINS) Vital Signs/I&O 03/10/21 03/10/21 16:55 18:43 Temp 37.1 Pulse 101 87 Resp 16 16 B/P (MAP) 146/77 (100) 144/82 Pulse Ox 96 97 O2 Delivery Room Air Room Air (VINCENZO GODOY DO) Blood Pressure Mean: 100 Progress Progress Note : Progress Note 1730--ASSUMED CARE FROM DR. SHAVER, LAB AND XRAY PENDING PT FEELING BETTER AT DISMISSAL HR IN 80'S, NORMAL SINUS RHYTHM BP 140'S/70'S (VINCENZO GODOY ) Initial ECG Impression Date: Mar 10, 2021 Initial ECG Impression Time: 17:18 Initial ECG Rate: 96 Initial ECG Rhythm: Normal Sinus Initial ECG Intervals CT interval 189 QRS [address] segment elevation or depression is noted. No ectopy, slightly prolonged QRS. Sinus rhythm overall Initial ECG Impression: Normal (SHARATH SHAVER MD) Departure Communication (Admissions) 183--SPOKE WITH DR. LEE, ADVISES TO SEND HOME AND HE WILL SEE IN OFFICE TOMORROW SCHEDULED (WALT,VINCENZO Maynor JENKINS) Impression Primary Impression: Supraventricular tachycardia Disposition: 01 HOME, SELF-CARE Condition: Improved Departure-Patient Inst. Decision time for Depature: 18:34 (WALTVINCENZO Mcguire ) Referrals: NAHOMY BARTON MD (PCP) Primary Care Physician JESSICA LEE MD FACP FACC CCDS Patient Instructions: Tachycardia (DC) Add. Discharge Instructions: CONTINUE YOUR CARDIZEM PRESCRIBED FOLLOW UP WITH DR. LEE IN OFFICE TOMORROW RETURN TO ER IF SYMPTOMS RETURN/WORSEN All discharge instructions reviewed with patient and/or family. Voiced understanding. SHARATH SHAVER MD Mar 10, 2021 17:15 VINCENZO GODOY DO Mar 10, 2021 17:36
[2021-03-10 17:26] LABS: BASOPHILS % (AUTO) 0 % (0-10); EOSINOPHILS # (AUTO) 0.2 10^3/uL (0.0-0.3); EOSINOPHILS % (AUTO) 3 % (0-10); HEMATOCRIT 37 % (40-54); HEMOGLOBIN 13.6 g/dL (13.3-17.7); LYMPHOCYTES # (AUTO) 1.3 10^3/uL (1.0-4.0); LYMPHOCYTES % (AUTO) 17 % (12-44); MEAN CORPUSCULAR HEMOGLOBIN 32 pg (25-34); MEAN CORPUSCULAR HGB CONC 37 g/dL (32-36); MEAN CORPUSCULAR VOLUME 88 fL (80-99); MEAN PLATELET VOLUME 9.7 fL (9.0-12.2); MONOCYTES # (AUTO) 1.2 10^3/uL (0.0-1.0); MONOCYTES % (AUTO) 16 % (0-12); NEUTROPHILS # (AUTO) 4.9 10^3/uL (1.8-7.8); NEUTROPHILS % (AUTO) 64 % (42-75); PLATELET COUNT 149 10^3/uL (130-400); WHITE BLOOD COUNT 7.7 10^3/uL (4.3-11.0)
[2021-03-10 17:28] LABS: POTASSIUM 3.5 MMOL/L (3.6-5.0)
[2021-03-10 17:30] LABS: CALCIUM 8.7 MG/DL (8.5-10.1)
[2021-03-10 17:31] LABS: TOTAL PROTEIN 6.3 GM/DL (6.4-8.2)
[2021-03-10 17:33] LABS: BILIRUBIN,TOTAL 1.2 MG/DL (0.1-1.0)
[2021-03-10 17:34] LABS: CREATININE SERUM 1.35 MG/DL (0.60-1.30)
[2021-03-10 17:37] LABS: MAGNESIUM 1.7 MG/DL (1.6-2.4)
[2021-03-10 17:58] LABS: MAGNESIUM 1.7 MG/DL (1.6-2.4)
--- NOTE | 2021-03-10 17:59 | Diagnostic Imaging Report ---
EXAMINATION: Chest 1 view HISTORY: Heart palpitations. Tachycardia. COMPARISON: None available. FINDINGS: The lung volumes are normal. No focal consolidation is seen. No large pleural effusion or pneumothorax is seen. The cardiomediastinal silhouette is normal in size and contour. No acute osseous abnormality is seen. IMPRESSION: 1. No acute pleuroparenchymal process. Dictated by: Dictated on workstation # [id number]
[2021-03-10 18:18] LABS: TSH (THYROID ANALYZER) 1.05 UIU/ML (0.35-4.94)
[2021-03-10 18:43] VITALS: BP 144/82
== END 2021-03-10 18:43 | disposition home or self-care (01) ==
LOC: EDUNIT# 16:42 → ER 16:44
DX: I47.1 Supraventricular tachycardia (principal); I10 Essential (primary) hypertension; E78.00 Pure hypercholesterolemia, unspecified; L40.9 Psoriasis, unspecified; Z79.899 Other long term (current) drug therapy
CPT/HCPCS: 36415; 71045; 80053; 83735; 83880; 84443; 84484; 85025; 93005

== ENCOUNTER 2021-03-15 13:19 | Outpatient (CLI) | payer MEDICARE, OTHER | END 2021-03-15 13:30 | LOC: SLEEP 13:19 | PROVIDERS: ATTEND Otolaryngology Otolaryngology/Facial Plastic Surgery | DX: G47.33 Obstructive sleep apnea (adult) (pediatric) (principal) | CPT/HCPCS: G0399 ==

== ENCOUNTER → 2022-12-20 | Outpatient (CLI) | payer MEDICARE, OTHER ==
[~2022-12-20] MED LIST changes: +CLOP-31 PO; -CLOP75TA69 PO; -DOXA4TAB PO; +DOXA4TAB96 PO
[2022-12-20 10:09] VITALS: BP 143/68
== END ==
LOC: CARD 09:33
PROVIDERS: ATTEND Internal Medicine Cardiovascular Disease
DX: I25.10 Atherosclerotic heart disease of native coronary artery without angina pectoris (principal)
CPT/HCPCS: 93017